=== PATIENT | female | born 1950 | race Caucasian/White ===

== ENCOUNTER → 2024-03-08 06:41 | Day surgery (SDC) | payer MEDICARE, BC, SELFPAY | LOC: CATH 06:41 | PROVIDERS: ATTENDING PHYSICIAN Internal Medicine Cardiovascular Disease | DX: I08.1 Rheumatic disorders of both mitral and tricuspid valves (principal); E03.9 Hypothyroidism, unspecified | CPT/HCPCS: 93312; 93320; 93325 ==

== ENCOUNTER → 2024-08-20 09:59 | Outpatient (REF) | payer MEDICARE, BC, SELFPAY ==
[2024-08-20 10:58] LABS: % Basophils 1.5 % (0-2); % Eosinophils 4.1 % (0-6); % Immature Granulocytes 0.3 % (0-0.5); % Lymphocytes 32.3 % (20.5-51.1); % Monocytes 7.2 % (1.7-9.3); % Neutrophils 54.6 % (42.2-75.2); Absolute Basophils 0.1 10^3/uL (0-0.2); Absolute Eosinophils 0.3 10^3/uL (0-0.7); Absolute Lymphocytes 2.2 10^3/uL (1.2-3.4); Absolute Monocytes 0.5 10^3/uL (0.1-0.6); Absolute Neutrophils 3.7 10^3/uL (1.4-6.5); Hematocrit 42.1 % (37.0-47.0); Mean Corp Hgb Conc. 33.3 g/dL (33.0-37.0); Mean Corpuscular Hgb 32.2 pg (27.0-31.0); Mean Corpuscular Volume 96.8 fL (81.0-99.0); Mean Platelet Volume 10.1 fL (7.4-10.4); Nucleated Red Blood Cells % 0 %; Platelet Count 201 10^3/uL (130-400); Red Blood Cell Count 4.35 10^6/uL (4.20-5.40); Red Cell Dist. Width 12.5 % (11.5-14.5); White Blood Cell Count 6.8 10^3/uL (4.8-10.8)
[2024-08-20 11:09] LABS: ALT (SGPT) 31 U/L (0-35); AST (SGOT) 40 U/L (14-36); Albumin 4.2 g/dl (3.5-5.0); Alkaline Phosphatase 96 U/L (38-126); Blood Urea Nitrogen 18 mg/dl (7-17); Calcium 10.2 mg/dl (8.4-10.2); Carbon Dioxide 30 mmol/L (22-30); Chloride 108 mmol/L (98-107); Glucose 94 mg/dl (70-99); Potassium 4.3 mmol/L (3.5-5.1); Sodium 143 mmol/L (135-145); Total Bilirubin 0.7 mg/dl (0.2-1.3); Total Protein 6.8 g/dl (6.3-8.2); eGFR > 60.00
== END ==
LOC: RAD 09:59
PROVIDERS: ATTENDING PHYSICIAN Obstetrics & Gynecology Gynecology; OTHER PHYSICIAN Surgery; REFERRING PHYSICIAN Nurse Practitioner Gerontology
DX: Z01.818 Encounter for other preprocedural examination (principal); I34.0 Nonrheumatic mitral (valve) insufficiency
CPT/HCPCS: 36415; 71275; 74174; 80053; 85025; 93880; Q9967

== ENCOUNTER 2024-08-21 07:36 | Day surgery (SDC) | payer MEDICARE, BC, SELFPAY ==
[2024-08-21 07:50] VITALS: BP 145/66; BMI 21.4
[2024-08-21] MEDS: NSS 1000 IV (10:46)
--- NOTE | 2024-08-21 12:37 | PTCARENOTE ---
upon removing right radial band; dime size hematoma noted, pressure apply to the site, vital sign remained stable and patient denied pain at the site. Dr Arce made awared, seen patient and radial band x2 applied for one hour.
[2024-08-21 13:00] VITALS: BP 105/70
[2024-08-21 14:00] VITALS: BP 111/72
[2024-08-21 14:39] VITALS: BP 116/56
[2024-08-21 14:41] VITALS: BP 115/58
[2024-08-21 14:55] VITALS: BP 129/67
--- NOTE | 2024-08-21 16:45 | ITS.CL.CATH ---
Histology Aide - Catheterization
Cardiac Catheterization
Procedure Report:
LEFT HEART CATHETERIZATION
Date of Procedure: August 21, 2024
PROCEDURES:
1. Left heart catheterization, coronary angiogram.
2. Moderate sedation
INDICATION: Preoperative prior to mitral surgery intervention
ACCESS: Right radial artery, 5 Ang[place] sheath, under ultrasound guidance
Ultrasound was utilized for vascular access. The radial artery was visualized under ultrasound, and the vessel was patent and pulsatile. An image was stored permanently in the patient's medical record. Under direct ultrasound guidance, a 6 Angolan
sheath was inserted into the artery using a micropuncture kit through a modified Seldinger technique.
HEMODYNAMICS : (mmHg)
AO (s/d) : 154/80
LV (s/d) : 160/3
LVEDP : 20
CORONARY FINDINGS
DOMINANCE: Right
LEFT MAIN: The left main artery is a large-caliber vessel which gives rise to the left anterior descending artery and the left circumflex artery. Normal coronary artery.
LEFT ANTERIOR DESCENDING: The left anterior descending artery is a medium to large caliber vessel, moderately tortuous which gives rise to multiple small caliber diagonal branches as it courses to the anterior interventricular groove and wraps
around the apex. Normal coronary artery.
CIRCUMFLEX: The left circumflex artery is a medium caliber vessel which gives rise to 1 major obtuse marginal branch. Normal coronary artery.
RIGHT CORONARY ARTERY: The right coronary artery is a medium to large caliber, dominant vessel which gives rise to the right posterior descending artery and the right posterolateral system. Normal coronary artery.
SEDATION: 27 minutes of procedural sedation was utilized. An independent medical assistant supervisor was present to assist with and help manage the patient's level of consciousness and physiologic status.
RADIATION SUMMARY: Fluoro Time (min): 1.8, Dose (mGy): 77.7, DAP (Gy.cm2) : 4.223
Closure Device: Vaseline over right radial artery, 10 cc of air.
CONCLUSIONS
1. No obstructive coronary artery disease.
2. Elevated LVEDP at 20 mmHg.
RECOMMENDATIONS
1. Proceed with plan for mitral surgical intervention.
2. Continued management of cardiovascular risk factors.
3. Wean radioman per protocol.
Juana Arce MD, FACC, [facility]
== END 2024-08-21 15:10 | disposition home or self-care (01) ==
LOC: CATH 07:36
PROVIDERS: ATTENDING PHYSICIAN Internal Medicine Interventional Cardiology
DX: I34.0 Nonrheumatic mitral (valve) insufficiency (principal); Z79.82 Long term (current) use of aspirin; Z79.890 Hormone replacement therapy; Z79.899 Other long term (current) drug therapy; I10 Essential (primary) hypertension; E03.9 Hypothyroidism, unspecified; E78.5 Hyperlipidemia, unspecified
CPT/HCPCS: 93005; 93458; 99152; 99153; C1894; Q9967